=== PATIENT | female | born 1980 | race African-American/Black ===

== ENCOUNTER 2017-10-12 07:20 | Inpatient (IN) | payer BC ==
[2017-10-12] MEDS ORDERED: diphenhydrAMINE 50 MG/ML VIAL ONE (08:11)
[2017-10-12] MEDS ORDERED: Ketorolac Tromethamine 30 MG/ML VIAL ONE (08:11)
[2017-10-12] MEDS ORDERED: Metoclopramide HCl 10 MG/2 ML VIAL ONE (08:11)
[2017-10-12 08:41] LABS: BHCG - Serum Negative (NEGATIVE); Pregs Control Background? CLEAR/WHITE (CLR/WHITE); Pregs Control Bar Appear? YES (CONTROL BAR)
[2017-10-12 08:46] LABS: Reflex for Review?? YES
[2017-10-12 08:47] LABS: Hemoglobin 3.9 g/dL (12.0-16.0); Mean Corpuscular HGB CONC 28.4 g/dL (32.0-36.0); Mean Corpuscular Volume 56.5 fl (81.0-99.0); Platelet Count 219 thou/uL (130-400); Red Blood Cell (RBC) Count 2.46 mill/uL (4.20-5.40); White Blood Cell (WBC) Count 6.3 thou/uL (4.8-10.8)
[2017-10-12 08:53] LABS: ALT (SGPT) 8 U/L (8-55); AST (SGOT) 13 U/L (5-34); Albumin 3.7 g/dL (3.5-5.0); Alkaline Phosphatase 47 U/L (40-150); Anion Gap 11 mmol/L (10-20); BUN (Urea Nitrogen) 5 mg/dL (7.0-18.7); Bilirubin, Total 0.4 mg/dL (0.2-1.2); Calc. Creatinine Clearance 0 mL/min (70-130); Calcium 8.6 mg/dL (7.8-10.44); Carbon Dioxide 23 mmol/L (22-29); Chloride 107 mmol/L (98-107); Estimated GFR-MDRD Greater than 90; Globulin 2.8 g/dL (2.4-3.5); Glucose 106 mg/dL (70-105); Lipase 26 U/L (8-78); Potassium 3.6 mmol/L (3.5-5.1); Protein, Total 6.5 g/dL (6.0-8.3); Sodium 137 mmol/L (136-145)
--- NOTE | 2017-10-12 09:15 | RAD ---
CHEST PA AND LATERAL: History: 36-year-old female with history of cough and headache. Comparison: 12-24-15 FINDINGS: Heart size is upper range of normal limits. No confluent pneumonia, overt edema, or pleural effusion. IMPRESSION: Upper range of normal size heart. Stable from prior study. No evidence for pneumonia, edema, or other acute process. POS: [facility]
[2017-10-12 09:26] LABS: #Eosinphils 0.1 thou/uL (0.0-0.7); #Lymphocytes 1.6 thou/uL (1.20-3.40); #Monocytes 0.4 thou/uL (0.11-0.59); #Neutrophils 3.8 thou/uL (1.40-6.50); %Basophils 0.3 % (0.0-1.0); %Eosinophils 0.8 % (0.0-10.0); %Lymphocytes 30.1 % (21.0-51.0); %Monocytes 5.3 % (0.0-10.0); %Neutrophils 63.6 % (42.0-75.0); Acanthocytes SLIGHT = 1-5 cells (100X) (None Seen); Band 6 % (5-11); Eosinophils 4 % (0-10); Hypochromia MARKED = >30 cells (100X) (0-5/hpf); Lymphocytes 27 % (21-51); MDiff Complete? YES; Microcytosis MARKED = >30 cells (100X) (0-5/hpf); Monocytes 5 % (0-10); Neutrophil 56 % (42-75); Ovalocytes MODERATE= 6-15 cells (100X) (0-1/hpf); PLT Morphology Comment Appears Adequate; Polychromasia SLIGHT = 2-3 cells (100X) (0-2/hpf); Schistocytes SLIGHT = 2-5 cells (100X) (0-1/hpf); Tear Drops SLIGHT = 2-5 cells (100X) (0-1/hpf)
[2017-10-12] MEDS ORDERED: Calcium Carbonate 500 MG ChewTAB PO PRN (10:25)
[2017-10-12] MEDS ORDERED: Senokot 8.6 MG TAB PO PRN (10:25)
[2017-10-12] MEDS ORDERED: Milk Of Magnesia 30 ML UDCUP PO PRN (10:25)
[2017-10-12] MEDS ORDERED: Loperamide HCl 2 MG CAP PO PRN (10:25)
[2017-10-12] MEDS ORDERED: Artificial Tears 18 DROP/0.9 ML EA EYE PRN (10:25)
[2017-10-12] MEDS ORDERED: Eucerin (Mineral Oil/Petrolatum,White) 30 gm Jar TOP PRN (10:25)
[2017-10-12] MEDS ORDERED: Zolpidem Tartrate 5 MG TAB PO PRN (10:25)
[2017-10-12] MEDS ORDERED: Sodium Chloride 0.65% Nasal 44 ML BOT EA NARE PRN (10:25)
[2017-10-12] MEDS ORDERED: diphenhydrAMINE 50 MG/ML VIAL IVP PRN (10:25)
[2017-10-12] MEDS ORDERED: Ondansetron HCl/PF 4 MG/2 ML Vial IVP PRN (10:25)
[2017-10-12] MEDS ORDERED: hydrALAZINE 20 MG/ML VIAL SLOW IVP PRN (10:25)
[2017-10-12] MEDS ORDERED: HYDROcodone/Acetaminophen 5/325 mg Tablet PO PRN (10:25)
[2017-10-12] MEDS ORDERED: Diabetic Tussin 200 MG/10 ML UDCUP PO PRN (10:25)
[2017-10-12] MEDS ORDERED: Mag-Al 1200 mg/1200 mg/30 ML UDCUP PO PRN (10:25)
[2017-10-12] MEDS ORDERED: Ondansetron ODT 4 MG TAB PO PRN (10:25)
[2017-10-12] MEDS ORDERED: Chloraseptic Spray 180 ml Bottle PO PRN (10:25)
[2017-10-12 11:06] LABS: Iron 10 ug/dL (50-170); Iron Binding Capacity, Total 413 mcg/dL (265-497)
[2017-10-12 11:59] LABS: Mean Platelet Volume 7.2 fL (7.4-10.4)
[2017-10-12] MEDS ORDERED: Sodium Chloride 0.9% 10 ML ONE (12:00)
--- NOTE | 2017-10-12 12:21 | HP ---
PRIMARY CARE PHYSICIAN: [facility]. REASON FOR ADMISSION: Severe symptomatic anemia. HISTORY OF PRESENT ILLNESS: A 36-year-old -[place] female who has long history of menorrhagi a and recurrent iron deficiency anemia who came to emergency room with a complaint of dyspnea on exer tion, easy fatigability, tiredness, dizziness, lightheadedness, headache, body ache. She was feeling cold more than usual. She was requiring 2-3 blankets. She was feeling very tired and she was remai mark sleep all the time. She was having dyspnea on exertion. She denies any syncopal episode. She denied any chest pain. Patient reports that she has chronic iron deficiency anemia from menorrhagia, but she was not able to tolerate oral ferrous sulfate pills that was making her nausea, vomiting, an d upset in her stomach along with constipation, so she was not taking regular basis. Patient was try ing to avoid hospitalization, but her condition day by day getting worse and that is why she decided today to come to emergency room. Today, her hemoglobin is 3.9. Patient denies any black tarry stool . She denies any hematochezia or melena. She denies any abdominal pain. She denies any UTI symptom s. She denies any focal motor symptoms. She denies any blood loss from any site. She denies taking NSAIDs. She is not taking any blood thinner medicine. She had exactly similar presentation in 07/2016. At that time, patient required blood transfusion. BELTING AND WEBBING INSPECTOR doctor saw this patient and various treatment options were discussed with her. She reports th at now her menorrhagia is relatively better than whatever it was in the past. PAST MEDICAL HISTORY: Chronic menorrhagia, recurrent iron deficiency anemia requiring blood transfus ion, folic acid deficiency, iron deficiency. PAST SURGICAL HISTORY: Reviewed and negative. x2, cholecystectomy. PAST PSYCHIATRIC HISTORY: Reviewed and negative. ALLERGIES: No known drug allergy. CURRENT HOME MEDICATIONS: The patient is currently not taking any medication. SOCIAL HISTORY: Patient is smoking on and off basis. 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 No hist ory of alcohol or other illicit drug abuse. FAMILY HISTORY: Positive for sickle cell disease. No family history of coronary artery disease, str danielle or cancer. REVIEW OF SYSTEMS: The following complete review of systems was negative, unless otherwise mentioned in the HPI or below: Constitutional: Weight loss or gain, ability to conduct usual activities. Sk in: Rash, itching. Eyes: Double vision, pain. ENT/Mouth: Nose bleeding, neck stiffness, pain, te nderness. Cardiovascular: Palpitations, dyspnea on exertion, orthopnea. Respiratory: Shortness of breath, wheezing, cough, hemoptysis, fever or night sweats. Gastrointestinal: Poor appetite, abdom inal pain, heartburn, nausea, vomiting, constipation, or diarrhea. Genitourinary: Urgency, frequenc y, dysuria, nocturia. Musculoskeletal: Pain, swelling. Neurologic/Psychiatric: Anxiety, depressio n. Allergy/Immunologic: Skin rash, bleeding tendency. Please see my HPI for pertinent positive and negative. All other review of systems reviewed and nega tive except as mentioned in the HPI. EMERGENCY ROOM COURSE: Patient is given Reglan 10 mg, Toradol 30 mg, Benadryl 25 mg, and IV fluid 1 liter. PHYSICAL EXAMINATION: VITAL SIGNS: On arrival, blood pressure 128/53, pulse 67, respiratory rate 18, temperature 98.4, sat uration 100% on room air, weight 77.1 kilograms. GENERAL: Patient is currently alert, awake, weak. No obvious acute distress. HEENT: Normocephalic, atraumatic. Eyes: Pupils round, reactive to light. Conjunctivae pale. No n ystagmus. ENT: Pale mucous membrane, no oral lesion, no pharyngeal erythema, no exudate. Moist muc ous membranes. NECK: Supple, no JVD, no thyromegaly, no carotid bruit, no jugular venous distention. LUNGS: Clear to auscultation without any rhonchi or rales. CARDIAC: S1, S2 regular. Hemic murmur noted, no gallop, no rub. ABDOMEN: Obesity present. Bowel sounds present, nontender, nondistended. No organomegaly, no mass, no suprapubic tenderness. BACK: Unremarkable. No CVA tenderness. EXTREMITIES: Upper extremity passive movement of all joints are normal. Lower extremity: Trace pema ma noted. Good distal pulsation. SKIN: No skin rash, pallor plus. HEMATOLOGICAL: No lymphadenopathy. PSYCHIATRIC: Normal affect. SIGNIFICANT LABORATORY DATA: Chest x-ray based on my review, no acute cardiopulmonary process. CBC: WBC 6.3, hemoglobin 3.9, platelet 219. BMP: Sodium 137, potassium 3.6, chloride 107, carbon dioxi de 23, anion gap 11, BUN 5, creatinine 0.62, glucose 106, calcium 8.6. LFT: AST 13, ALT 8, alkaline phosphatase 47, albumin 3.7, lipase 26. test negative. Iron 10, TIBC 413. ASSESSMENT AND PLAN: 1. Severe symptomatic iron deficiency anemia. The patient will be given 3 units of blood transfusio n today. We will watch for any fluid overload. We will repeat H&H after 3 units of transfusion and we will repeat CBC tomorrow. If hemoglobin is still less than 7, then we will consider transfusion t omorrow morning. We will check ferritin and iron study. We will also consider giving her iron infus ion before discharge because patient is not tolerating any iron supplementation. We will try to give her ferrous sulfate 325 mg p.o. b.i.d., folic acid 1 mg p.o. daily, multivitamin 1 tablet daily, vit awad B12 1000 mg p.o. daily. The patient is advised to avoid NSAIDs. The patient is also advised to follow up with BELTING AND WEBBING INSPECTOR doctor. 2. Menorrhagia, chronic. The patient is fully evaluated during previous admission in our hospital. She had a pelvic ultrasound and she does have uterine fibroid. Patient will need outpatient treatme nt with BELTING AND WEBBING INSPECTOR to prevent recurrent iron deficiency anemia. 3. Tobacco abuse disorder. Smoking cessation counseling given. Healthy lifestyle measures discusse d with the patient. 4. Mild obesity. Dietary education given. Weight loss education advised. 5. Deep venous thrombosis prophylaxis not needed because the patient is low risk and severe anemia. 5. Gastrointestinal prophylaxis, Pepcid 20 mg p.o. b.i.d. We will also check stool for guaiac. Disposition plan based on clinical course. We are expecting patient's stay in hospital more than 2 m idnights. Plan of care discussed with the patient in detail.
[2017-10-12] MEDS: Famotidine 20 MG TAB PO SCH (22:13)
[2017-10-12] MEDS: Ferrous Sulfate 325 MG TAB PO SCH (22:13)
[2017-10-13 05:09] VITALS: BMI 27.5
[2017-10-13 06:23] LABS: ALT (SGPT) 25 U/L (8-55); AST (SGOT) 33 U/L (5-34); Albumin 3.6 g/dL (3.5-5.0); Alkaline Phosphatase 50 U/L (40-150); Anion Gap 8 mmol/L (10-20); BUN (Urea Nitrogen) 4 mg/dL (7.0-18.7); Bilirubin, Total 0.9 mg/dL (0.2-1.2); Calc. Creatinine Clearance 143 mL/min (70-130); Calcium 8.4 mg/dL (7.8-10.44); Carbon Dioxide 24 mmol/L (22-29); Chloride 109 mmol/L (98-107); Estimated GFR-MDRD Greater than 90; Globulin 2.6 g/dL (2.4-3.5); Glucose 90 mg/dL (70-105); Potassium 3.8 mmol/L (3.5-5.1); Protein, Total 6.2 g/dL (6.0-8.3); Sodium 137 mmol/L (136-145)
[2017-10-13 06:51] LABS: #Eosinphils 0.1 thou/uL (0.0-0.7); #Lymphocytes 1.8 thou/uL (1.20-3.40); #Monocytes 0.6 thou/uL (0.11-0.59); #Neutrophils 5.7 thou/uL (1.40-6.50); %Basophils 0.3 % (0.0-1.0); %Eosinophils 0.7 % (0.0-10.0); %Lymphocytes 21.8 % (21.0-51.0); %Monocytes 6.8 % (0.0-10.0); %Neutrophils 70.3 % (42.0-75.0); Anisocytosis MARKED = >30 cells (100X) (0-5/hpf); Hypochromia MODERATE=16-30 cells (100X) (0-5/hpf); MDiff Complete? YES; Mean Corpuscular Hemoglobin 21.6 pg (27.0-31.0); Mean Corpuscular Volume 67.6 fl (81.0-99.0); Mean Platelet Volume 6.4 fL (7.4-10.4); Microcytosis MODERATE=15-30 cells (100X) (0-5/hpf); PLT Morphology Comment Appears Adequate; Platelet Count 258 thou/uL (130-400); RBC Distribution Width 37.9 % (11.5-14.5); Red Blood Cell (RBC) Count 3.22 mill/uL (4.20-5.40); Tear Drops SLIGHT = 2-5 cells (100X) (0-1/hpf); White Blood Cell (WBC) Count 8.1 thou/uL (4.8-10.8)
[2017-10-13] MEDS: Sodium Ferric Gluconate 250 MG in Sodium Chloride 0.9% 100 ML IVPB SCH ×2 (07:57→21:51)
[2017-10-13] MEDS: Cyanocobalamin (Vitamin B-12) 1,000 MCG TAB PO SCH (07:57)
[2017-10-13] MEDS: Multivitamin W/ Minerals 1 TAB PO SCH (07:58)
[2017-10-13] MEDS: Famotidine 20 MG TAB PO SCH ×2 (07:58→21:52)
[2017-10-13] MEDS: Folic Acid 1 MG TAB PO SCH (07:58)
[2017-10-13] MEDS: Ferrous Sulfate 325 MG TAB PO SCH ×2 (07:58→17:42)
--- NOTE | 2017-10-13 09:44 | PDOC.PN ---
- Subjective Encounter Start Date: 10/13/17 Encounter Start Time: 07:00 -: old records requested/rev Patient seen and examined for iron defi anemia. No new complaints. No overnight events - Objective Resuscitation Status: Resuscitation Status FULL:Full Resuscitation MAR Reviewed: Yes Vital Signs & Weight: Vital Signs (12 hours) Temp Pulse Pulse Resp BP BP Pulse Ox 10/13/17 08:00 98.2 F 56 L 16 122/61 100 10/13/17 03:34 98.5 F 60 16 113/90 95 10/13/17 00:30 98.8 F 68 20 100 10/12/17 23:51 98.8 F 68 18 145/65 H Weight Weight 165 lb 6 oz I&O: 10/12/17 10/13/17 10/14/17 06:59 06:59 06:59 Intake Total 887 Balance 887 Result Diagrams: 10/13/17 05:24 10/13/17 05:24 Phys Exam - Physical Examination Constitutional: NAD HEENT: PERRLA, moist MMs, sclera anicteric pallor+ Neck: no nodes, no JVD, supple, full ROM Respiratory: no wheezing, no rales, no rhonchi Cardiovascular: RRR, no significant murmur, no rub Hemic murmur+ Gastrointestinal: soft, non-tender, no distention, positive bowel sounds Musculoskeletal: no edema, pulses present Neurological: non-focal, normal sensation, moves all 4 limbs Lymphatic: no nodes Psychiatric: normal affect, A&O x 3 Skin: no rash, normal turgor, cap refill <2 seconds Dx/Plan (1) Symptomatic anemia Code(s): D64.9 - ANEMIA, UNSPECIFIED Status: Acute Comment: so far 3 unit prbc given, today will give one more prbc (2) Anxiety and depression Code(s): F41.9 - ANXIETY DISORDER, UNSPECIFIED; F32.9 - MAJOR DEPRESSIVE DISORDER, SINGLE EPISODE, UNSPECIFIED Status: Chronic Comment: not on treatment, controlled (3) Iron deficiency anemia due to chronic blood loss Code(s): D50.0 - IRON DEFICIENCY ANEMIA SECONDARY TO BLOOD LOSS (CHRONIC) Status: Chronic Comment: today will give 2 dose of IV iron as she is not tolerating oral iron (4) Menorrhagia Code(s): N92.0 - EXCESSIVE AND FREQUENT MENSTRUATION WITH REGULAR CYCLE Status : Chronic Comment: now controlled, advised oupt ob-double cut off saw operator follow up (5) Obesity Code(s): E66.9 - OBESITY, UNSPECIFIED Status: Chronic (6) Uterine adenomyoma Code(s): D26.9 - OTHER BENIGN NEOPLASM OF UTERUS, UNSPECIFIED Status: Chronic Comment: advised outpt ob-double cut off saw operator follow up - Plan cont current plan of care, DVT proph w/SCDs * tomorrow will repeat cbc * expecting discharge tomorrow * medication reviewed as below * symptomatic treatment. Review of Systems - Review of Systems Constitutional: negative: fever, chills, sweats, weakness, malaise, other ENT: negative: Ear Pain, Ear Discharge, Nose Pain, Nose Discharge, Nose Congestion, Mouth Pain, Mouth Swelling, Throat Pain, Throat Swelling, Other Respiratory: negative: Cough, Dry, Shortness of Breath, Hemoptysis, SOB with Excertion, Pleuritic Pain, Sputum, Wheezing Cardiovascular: negative: chest pain, palpitations, orthopnea, paroxysmal nocturnal dyspnea, edema, light headedness, other Gastrointestinal: negative: Nausea, Vomiting, Abdominal Pain, Diarrhea, Constipation, Melena, Hematochezia, Other Genitourinary: negative: Dysuria, Frequency, Incontinence, Hematuria, Retention , Other Musculoskeletal: negative: Neck Pain, Shoulder Pain, Arm Pain, Back Pain, Hand Pain, Leg Pain, Foot Pain, Other Skin: negative: Rash, Lesions, Cash, Bruising, Other - Medications/Allergies Allergies/Adverse Reactions: Allergies Allergy/AdvReac Type Severity Reaction Status Date / Time No Known Allergies Allergy Verified 12/24/15 15:48 Medications: Current Medications Acetaminophen (Tylenol) 650 mg PO Q4H PRN PRN Reason: Headache/Fever or Pain Hydrocodone Bitart/Acetaminophen ([place] 5/325) 1 tab PO Q4H PRN PRN Reason: Moderate Pain (4-6) Al Hydroxide/Mg Hydroxide (Maalox) 30 ml PO Q6H PRN PRN Reason: Heartburn or Indigestion Artificial Tears (Tears Naturale) 0 drop EA EYE PRN PRN PRN Reason: Dry Eyes Calcium Carbonate (Tums) 1,000 mg PO Q4H PRN PRN Reason: Heartburn or Indigestion Cyanocobalamin (Vitamin B-12) 1,000 mcg PO DAILY [facility] Last Admin: 10/13/17 07:57 Dose: 1,000 mcg Diphenhydramine HCl (Benadryl) 25 mg IVP Q4H PRN PRN Reason: Itching Famotidine (Pepcid) 20 mg PO BID [facility] Last Admin: 10/13/17 07:58 Dose: 20 mg Ferrous Sulfate (Feosol) 325 mg PO BID[facility] Last Admin: 10/13/17 07:58 Dose: 325 mg Folic Acid (Folvite) 1 mg PO DAILY [facility] Last Admin: 10/13/17 07:58 Dose: 1 mg Guaifenesin (Robitussin Sf) 200 mg PO Q4H PRN PRN Reason: Cough Hydralazine HCl (Apresoline) 10 mg SLOW IVP Q4H PRN PRN Reason: Systolic BP > 180 Ferric Sodium Gluconate Complex 250 mg/ Sodium Chloride 120 mls @ 60 mls/hr IVPB Q12HR [facility] Stop: 10/13/17 21:01 Last Admin: 10/13/17 07:57 Dose: 120 mls Iron/Minerals/Multivitamins (Theragran M) 1 tab PO DAILY [facility] Last Admin: 10/13/17 07:58 Dose: 1 tab Loperamide HCl (Imodium) 2 mg PO PRN PRN PRN Reason: Diarrhea/Loose Stools Magnesium Hydroxide (Milk Of Magnesium) 30 ml PO DAILYPRN PRN PRN Reason: Constipation Mineral Oil/White Petrolatum (Eucerin Cream) 0 gm TOP BIDPRN PRN PRN Reason: Dry Skin Ondansetron HCl (Zofran Odt) 4 mg PO Q6H PRN PRN Reason: Nausea/Vomiting Ondansetron HCl (Zofran) 4 mg IVP Q6H PRN PRN Reason: Nausea/Vomiting Phenol (Chloraseptic [place] 180 Ml Bot) 0 ml PO PRN PRN PRN Reason: Sore Throat Senna (Senokot) 2 tab PO HSPRN PRN PRN Reason: Constipation Sodium Chloride ([place] Nasal [place] 0.65%) 0 ml EA NARE QIDPRN PRN PRN Reason: Nasal Congestion Sodium Chloride (Flush - Normal Saline) 10 ml IVF Q12HR [facility] Last Admin: 10/13/17 07:58 Dose: 10 ml Sodium Chloride (Flush - Normal Saline) 10 ml IVF PRN PRN PRN Reason: Saline Flush Zolpidem Tartrate (Ambien) 5 mg PO HSPRN PRN PRN Reason: Insomnia
[2017-10-13 14:10] LABS: Bilirubin Negative (Negative); Blood, Urine Negative (Negative); Clarity CLEAR (Clear); Glucose, Urine (Dipstick) Negative (Negative); Leukocyte Trace (Negative); Nitrite Negative (Negative); Protein, Urine (Dipstick) Negative (Neg-Trace); Specific Gravity, Urine 1.016 (1.002-1.036)
[2017-10-13 14:14] LABS: Bacteria/HPF None Seen HPF (None Seen); Hyaline Casts/LPF 0-3 HYALINE CAST LPF (0-3 Hyaline); RBC/HPF 0-3 HPF (0-3); Squamous Epithelial 0-3 HPF (0-3); WBC/HPF 0-3 HPF (0-3)
[2017-10-13] MEDS: Acetaminophen 325 MG TAB PO PRN (17:42)
[2017-10-14] MEDS: Acetaminophen 325 MG TAB PO PRN (06:22)
--- NOTE | 2017-10-14 07:38 | PDOC.PN ---
- Subjective Encounter Start Date: 10/14/17 Encounter Start Time: 07:37 Ms. Valles was seen today in follow-up of severe anemia. She is feeling much better after the transfusion. - Objective Resuscitation Status: Resuscitation Status FULL:Full Resuscitation MAR Reviewed: Yes Vital Signs & Weight: Vital Signs (12 hours) Temp Pulse Resp BP Pulse Ox 10/14/17 00:00 98.4 F 52 L 18 138/68 100 10/13/17 20:00 98.4 F 52 L 18 100 10/13/17 19:56 98.3 F 50 L 16 163/85 H 99 Weight Weight 165 lb 6 oz I&O: 10/13/17 10/14/17 10/15/17 06:59 06:59 06:59 Intake Total 887 1790 Balance 887 1790 Result Diagrams: 10/13/17 05:24 10/13/17 05:24 Phys Exam - Physical Examination HEENT: PERRLA Respiratory: no wheezing, no rales, no rhonchi, clear to auscultation bilateral Cardiovascular: RRR, no significant murmur, no rub Gastrointestinal: soft, non-tender, positive bowel sounds Musculoskeletal: no edema Dx/Plan (1) Symptomatic anemia Code(s): D64.9 - ANEMIA, UNSPECIFIED Status: Acute Comment: so far 3 unit prbc given, today will give one more prbc (2) Iron deficiency anemia due to chronic blood loss Code(s): D50.0 - IRON DEFICIENCY ANEMIA SECONDARY TO BLOOD LOSS (CHRONIC) Status: Chronic Comment: today will give 2 dose of IV iron as she is not tolerating oral iron (3) Menorrhagia Code(s): N92.0 - EXCESSIVE AND FREQUENT MENSTRUATION WITH REGULAR CYCLE Status : Chronic Comment: now controlled, advised oupt ob-computer publisher follow up - Plan * Severe anemia- much imroved after transfusion, and she had received IV iron as well * We discussed some options Ie Hysterectomy vs. Uterine ablation * She will be discharged home with close OB-PRACTICE OFFICE ASSOCIATE follow-up..
--- NOTE | 2017-10-14 08:00 | DIS ---
DATE OF ADMISSION: 10/12/2017 DATE OF DISCHARGE: 10/14/2017 DISCHARGE DISPOSITION: Home. PRIMARY DISCHARGE DIAGNOSES: 1. Severe symptomatic anemia secondary to chronic blood loss. 2. Iron deficiency anemia. 3. Severe menorrhagia. DISCHARGE MEDICATIONS: Include, Iron Sulfate 325 mg twice a day. CODE STATUS: FULL CODE. ALLERGIES: No known drug allergies. HOSPITAL COURSE: Ms. Valles is a very pleasant 36-year-old female, who presented to the emergency aga m with severe shortness of breath and some chest discomfort as well. She was evaluated in the ER and found to have a dangerously low hemoglobin of 3.9. She was admitted and received 4 units of packed blood cells were transfused to bring her hemoglobin up to 7. She was also given IV iron as well. He r iron level was 10 and ferritin was less than 2. Serum test was negative. In review of h er record, she had been seen by the [facility] last admission and therefore they were n ot consulted again this time. She has the number to the [facility] [place]. She had a cou ple of other questions that were answered with regards to uterine ablation versus hysterectomy and ho w to take the iron without severe side effects, etc. These questions were all answered and she was to ld the dangers of repetitive severe low hemoglobins including heart failure and and she will th erefore be discharged home and will have close outpatient followup.
[2017-10-14 08:08] LABS: Acanthocytes SLIGHT = 1-5 cells (100X) (None Seen); Anisocytosis MARKED = >30 cells (100X) (0-5/hpf); Band 6 % (5-11); Bite Cells SLIGHT = 2-5 cells (100X) (0-1/hpf); Hemoglobin 8.5 g/dL (12.0-16.0); Hypochromia MODERATE=16-30 cells (100X) (0-5/hpf); Lymphocytes 19 % (21-51); MDiff Complete? YES; Mean Corpuscular HGB CONC 30.6 g/dL (32.0-36.0); Mean Corpuscular Hemoglobin 21.9 pg (27.0-31.0); Mean Corpuscular Volume 71.7 fl (81.0-99.0); Mean Platelet Volume 6.5 fL (7.4-10.4); Monocytes 8 % (0-10); Neutrophil 67 % (42-75); PLT Morphology Comment Appears Adequate; Platelet Count 381 thou/uL (130-400); Polychromasia MODERATE = 3-4 cells (100X) (0-2/hpf); RBC Distribution Width 36.8 % (11.5-14.5); Red Blood Cell (RBC) Count 3.87 mill/uL (4.20-5.40); Schistocytes MODERATE= 6-15 cells (100X) (0-1/hpf); White Blood Cell (WBC) Count 10.9 thou/uL (4.8-10.8)
[2017-10-14 08:20] VITALS: BP 141/61; TEMP 97.6
[2017-10-14] MEDS: Folic Acid 1 MG TAB PO SCH (09:04)
[2017-10-14] MEDS: Ferrous Sulfate 325 MG TAB PO SCH (09:04)
[2017-10-14] MEDS: Cyanocobalamin (Vitamin B-12) 1,000 MCG TAB PO SCH (09:04)
[2017-10-14] MEDS: Multivitamin W/ Minerals 1 TAB PO SCH (09:04)
[2017-10-14] MEDS: Famotidine 20 MG TAB PO SCH (09:04)
== END 2017-10-14 10:58 | disposition home or self-care (01) | DRG 812 ==
LOC: ERS 07:20 → 3SE 09:33 → ONC 10-13 00:23
PROVIDERS: ADMIT Internal Medicine; ATTEND Internal Medicine
DX: D50.0 Iron deficiency anemia secondary to blood loss (chronic) (principal); N92.0 Excessive and frequent menstruation with regular cycle; F32.9 Major depressive disorder, single episode, unspecified; F41.9 Anxiety disorder, unspecified; E66.9 Obesity, unspecified; Z68.27 Body mass index [BMI] 27.0-27.9, adult; Z71.6 Tobacco abuse counseling; F17.200 Nicotine dependence, unspecified, uncomplicated
CPT/HCPCS: 36415; 36430; 71046; 80053; 81001; 82274; 82728; 83540; 83550; 83690; 84703; 85025; 85060; 86850; 86900; 86901; 96365; 96366; 96375; A4216; J1200; J1885; J2765; J2916; J7050; P9016; Q0162

== ENCOUNTER 2018-07-25 19:44 | Observation (INO) | payer BC ==
[2018-07-25 20:28] LABS: Mean Corpuscular Hemoglobin 15.6 pg (27.0-31.0); Mean Corpuscular Volume 53.8 fL (78.0-98.0); RBC Distribution Width 38.6 % (11.5-14.5); Red Blood Cell (RBC) Count 2.55 mill/uL (4.20-5.40); White Blood Cell (WBC) Count 5.3 thou/uL (4.8-10.8)
[2018-07-25 20:40] LABS: ALT (SGPT) 7 U/L (8-55); AST (SGOT) 12 U/L (5-34); Albumin 4.3 g/dL (3.5-5.0); Alkaline Phosphatase 63 U/L (40-150); Anion Gap 12 mmol/L (10-20); BUN (Urea Nitrogen) 7 mg/dL (7.0-18.7); Bilirubin, Total 0.2 mg/dL (0.2-1.2); Calc. Creatinine Clearance 0 mL/min (70-130); Calcium 9.4 mg/dL (7.8-10.44); Carbon Dioxide 23 mmol/L (22-29); Chloride 107 mmol/L (98-107); Estimated GFR-MDRD Greater than 90; Globulin 3.3 g/dL (2.4-3.5); Glucose 78 mg/dL (70-105); Iron 173 ug/dL (50-170); Iron Binding Capacity, Total 496 mcg/dL (265-497); Potassium 3.4 mmol/L (3.5-5.1); Protein, Total 7.6 g/dL (6.0-8.3); Sodium 139 mmol/L (136-145)
[2018-07-25 20:45] LABS: #Eosinphils 0.1 thou/uL (0.0-0.7); #Lymphocytes 2.5 thou/uL (1.20-3.40); #Monocytes 0.3 thou/uL (0.11-0.59); #Neutrophils 2.5 thou/uL (1.40-6.50); %Basophils 0.9 % (0.0-1.0); %Eosinophils 1.1 % (0.0-10.0); %Lymphocytes 46.3 % (21.0-51.0); %Monocytes 5.4 % (0.0-10.0); %Neutrophils 46.3 % (42.0-75.0); Anisocytosis MODERATE=16-30 cells (100X) (0-5/hpf); Elliptocytes SLIGHT = 2-5 cells (100X) (0-1/hpf); Hypochromia MARKED = >30 cells (100X) (0-5/hpf); MDiff Complete? YES; Platelet Count 35 thou/uL (130-400); Platelet Morphology Comment Appears Decreased
[2018-07-25] MEDS ORDERED: Acetaminophen 500 MG TAB ONE (21:49)
[2018-07-25] MEDS ORDERED: Ondansetron PF 4 MG/2 ML Vial IVP PRN (23:09)
[2018-07-25] MEDS ORDERED: Acetaminophen 325 MG TAB PO PRN (23:09)
[2018-07-25] MEDS ORDERED: Ondansetron ODT 4 MG TAB PO PRN (23:09)
[2018-07-26 00:03] VITALS: BMI 33.1
--- NOTE | 2018-07-26 04:16 | HP ---
PRIMARY CARE PHYSICIAN: There is no PCP reported. She goes to [facility]. CODE STATUS: Full code. TIME OF EVALUATION: 2224. CHIEF COMPLAINT: Headache and generalized weakness. HISTORY OF PRESENT ILLNESS: This is a 37-year-old female patient with past medical history of chronic anemia and many times been severe needing blood transfusion. The patient has a long history of having heavy periods, has been on iron pills for long time. She presented having headaches and severe generalized weakness that has been gradually getting worse, especially for the past few days. The patient was seen in the clinic and she had some blood work done and she was asked to come to the hospital due to low hemoglobin. REVIEW OF SYSTEMS: CONSTITUTIONAL: No fever, chills. The patient reported some generalized weakness. RESPIRATORY: No cough, sputum production, shortness of breath. CARDIOVASCULAR: No chest pain, palpitations. GASTROINTESTINAL: No nausea, no vomiting. No diarrhea or abdominal pain. CENTRAL NERVOUS SYSTEM: No dizziness. The patient did report headache, feeling lightheaded. GENITOURINARY : No burning on urination. EXTREMITIES: No leg swelling. All other systems were reviewed and negative except for the findings mentioned above. PAST MEDICAL HISTORY: Positive for chronic anemia, iron-deficiency anemia. PAST SURGICAL HISTORY: x2, cholecystectomy. PSYCHIATRIC HISTORY: Anxiety. FAMILY HISTORY : Reviewed and non contributory for current presentation. SOCIAL HISTORY: No alcohol. No drugs. Former tobacco user. ALLERGIES: NO KNOWN DRUG ALLERGIES. REPORTED MEDICATIONS: Iron pills sometimes. PHYSICAL EXAMINATION: VITAL SIGNS: On presentation, blood pressure 134/62 with heart rate 85, respiratory rate was 16, temperature 98.5. Pain was 0/10. Oxygen saturation was 100% on room air. GENERAL APPEARANCE: The patient is alert, oriented, not in acute distress. HEENT: Eyes, normal conjunctiva. Moist oral mucosa. Anicteric. No JVD. RESPIRATORY: Bilateral air entry. No rales. No wheezing. Symmetric expansion. CARDIOVASCULAR: Normal rate. Regular rhythm. No murmurs. No gallop. No edema. ABDOMEN: Soft. Normal bowel sounds. MUSCULOSKELETAL: Baseline range of motion and strength. No tenderness. SKIN: Warm, intact. The patient is pale. No rash. No redness. VASCULAR: Peripheral pulses are present. Capillary refill seems to be intact. NEUROLOGIC: No evidence of any new focal weakness. Baseline speech. Cranial nerves seem to be intact. PSYCHIATRIC: The patient has good mood. No anxiety. Optimal judgment. DIAGNOSTIC DATA: EKG was reviewed. The patient has normal sinus rhythm with a rate of 79, MD 186, QRS 102, QT corrected 454. LABORATORY DATA: Labs were reviewed. The patient has white count 5.3, hemoglobin 4.0, hematocrit 13.7, MCV 53.8. The patient has a platelet count of 35. Chemistry; sodium 139, potassium 3.4, chloride 107, carbon dioxide 23, anion gap 12. BUN 7 , creatinine 0.7. GFR greater than 90, glucose 78, calcium 9.4, iron 173, TIBC 496, ferritin 4.46, total bilirubin 0.2, AST 12, ALT 7. Troponin was negative. Albumin was negative. ASSESSMENT AND PLAN: 1. The patient has severe anemia with hemoglobin of 4. She has had history of hemoglobin since 2016 in our records of about 5.4, 4.7, 3.9, so this range is expected for her in some way. We will transfuse. We will monitor hemoglobin. Might benefit from Hematology consultation prior to discharge or as outpatient. 2. Severe thrombocytopenia of 35, this is new for her. This will be discussed with Hematology. The patient has no bleeding right now. We will monitor. 3. Hypokalemia, potassium 3.4, we will replace electrolytes as needed. 4. Possible thalassemia. The patient has MCV very low that could be related to underlying known diagnosis of thalassemia and certainly given the fact that iron was high. Again, this could be followed as outpatient with bore mill operator for plastic. 5. DVT prophylaxis. Job ID: [id number] [facility] DIVISIONOphelia
[2018-07-26 07:07] LABS: Hemoglobin 5.8 g/dL (12.0-16.0); Mean Corpuscular HGB CONC 30.5 g/dL (32.0-36.0); Mean Corpuscular Hemoglobin 18.9 pg (27.0-31.0); Mean Platelet Volume 8.3 fL (7.4-10.4); Platelet Count 31 thou/uL (130-400); RBC Distribution Width 37.6 % (11.5-14.5); Red Blood Cell (RBC) Count 3.08 mill/uL (4.20-5.40); White Blood Cell (WBC) Count 4.1 thou/uL (4.8-10.8)
[2018-07-26 07:14] LABS: Anion Gap 11 mmol/L (10-20); BUN (Urea Nitrogen) 7 mg/dL (7.0-18.7); Calc. Creatinine Clearance 192 mL/min (70-130); Calcium 8.9 mg/dL (7.8-10.44); Carbon Dioxide 21 mmol/L (22-29); Chloride 111 mmol/L (98-107); Estimated GFR-MDRD Greater than 90; Glucose 93 mg/dL (70-105); Potassium 3.8 mmol/L (3.5-5.1); Sodium 139 mmol/L (136-145)
[2018-07-26 09:11] LABS: Band 1 % (5-11); Bite Cells SLIGHT = 2-5 cells (100X) (0-1/hpf); Eosinophils 4 % (0-10); Hypochromia MARKED = >30 cells (100X) (0-5/hpf); Lymphocytes 45 % (21-51); MDiff Complete? YES; Microcytosis MARKED = >30 cells (100X) (0-5/hpf); Monocytes 2 % (0-10); Neutrophil 47 % (42-75); Ovalocytes MODERATE= 6-15 cells (100X) (0-1/hpf); Platelet Morphology Comment Appears Decreased; Polychromasia SLIGHT = 2-3 cells (100X) (0-2/hpf); Reactive Lymphocytes 1 % (0-10); Reflex for Review?? YES; Schistocytes SLIGHT = 2-5 cells (100X) (0-1/hpf); Spherocytes SLIGHT = 1-5 cells (100X) (None Seen); Tear Drops SLIGHT = 2-5 cells (100X) (0-1/hpf)
[2018-07-26] MEDS: Ferrous Sulfate 325 MG TAB PO SCH ×2 (11:01→17:42)
--- NOTE | 2018-07-26 12:55 | PDOC.PN ---
- Subjective Encounter Start Date: 07/26/18 Encounter Start Time: 12:53 Patient lying in bed, no complaints. She denies chest pain, shortness of breath or abdominal pain. She has received 2 units PRBCs and Hgb currently 5.8. - Objective Resuscitation Status - Order Detail: 07/25/18 23:09 Resuscitation Status Routine Resuscitation Status: FULL: Full Resuscitation MAR Reviewed: Yes Vital Signs & Weight: Vital Signs (12 hours) Temp Pulse Pulse Resp BP BP Pulse Ox 07/26/18 12:00 97.6 F 67 16 140/65 100 07/26/18 08:00 98.6 F 69 18 128/60 100 07/26/18 03:35 98.3 F 72 16 132/60 100 07/26/18 01:22 98 F 77 18 123/58 L 100 Weight Weight 205 lb 9.6 oz I&O: 07/25/18 07/26/18 07/27/18 06:59 06:59 06:59 Intake Total 2032 Balance 2032 Result Diagrams: 07/26/18 06:13 07/26/18 06:13 Radiology Reviewed by me: Yes Phys Exam - Physical Examination Constitutional: NAD HEENT: PERRLA, moist MMs, oral pharynx no lesions Neck: no nodes, no JVD Respiratory: no wheezing, clear to auscultation bilateral Cardiovascular: RRR, no significant murmur Gastrointestinal: soft, non-tender, positive bowel sounds Musculoskeletal: no edema, pulses present Neurological: non-focal, normal sensation Lymphatic: no nodes Psychiatric: normal affect, A&O x 3 Skin: no rash, cap refill <2 seconds Dx/Plan (1) Symptomatic anemia Code(s): D64.9 - ANEMIA, UNSPECIFIED Status: Acute Comment: so far 3 unit prbc given, today will give one more prbc (2) Iron deficiency anemia due to chronic blood loss Code(s): D50.0 - IRON DEFICIENCY ANEMIA SECONDARY TO BLOOD LOSS (CHRONIC) Status: Chronic (3) Menorrhagia Code(s): N92.0 - EXCESSIVE AND FREQUENT MENSTRUATION WITH REGULAR CYCLE Status : Chronic Comment: now controlled, advised oupt ob-butt presser follow up (4) Obesity Code(s): E66.9 - OBESITY, UNSPECIFIED Status: Chronic (5) Uterine adenomyoma Code(s): D26.9 - OTHER BENIGN NEOPLASM OF UTERUS, UNSPECIFIED Status: Chronic Comment: advised outpt ob-butt presser follow up - Plan cont current plan of care * Continue transfusions, will order 2 more units so she can improve to Hgb >7.0 * Monitor H&H * Continue home medications including oral iron * Patient recommended to have hysterectomy [address] Yanes, but she refused * Likely discharge once Hgb >7.0
[2018-07-26 23:44] LABS: Hemoglobin 7.9 g/dL (12.0-16.0)
[2018-07-27] MEDS: Ferrous Sulfate 325 MG TAB PO SCH (08:03)
[2018-07-27 08:06] VITALS: BP 123/60; TEMP 97.8
== END 2018-07-27 09:47 | disposition home or self-care (01) ==
LOC: ERS 19:44 → 2SW 21:31
PROVIDERS: ADMIT Hospitalist; ATTEND Hospitalist
DX: D50.0 Iron deficiency anemia secondary to blood loss (chronic) (principal); N92.0 Excessive and frequent menstruation with regular cycle; D69.6 Thrombocytopenia, unspecified; E87.6 Hypokalemia; F41.9 Anxiety disorder, unspecified; D26.9 Other benign neoplasm of uterus, unspecified; E66.9 Obesity, unspecified; Z68.33 Body mass index [BMI] 33.0-33.9, adult; Z90.49 Acquired absence of other specified parts of digestive tract; Z87.891 Personal history of nicotine dependence
CPT/HCPCS: 36415; 36430; 80048; 80053; 82728; 83540; 83550; 84484; 85025; 85060; 86850; 86900; 86901; 90471; 90686; 93005; G0008; G0378; P9016; Q0162

== ENCOUNTER 2020-09-16 23:38 | Observation (INO) | payer BC, SELFPAY ==
[2020-09-17 00:43] LABS: ALT (SGPT) 9 U/L (8-55); AST (SGOT) 19 U/L (5-34); Albumin 3.8 g/dL (3.5-5.0); Alkaline Phosphatase 53 U/L (40-110); Anion Gap 14 mmol/L (10-20); BUN (Urea Nitrogen) 8 mg/dL (7.0-18.7); Bilirubin, Total 0.2 mg/dL (0.2-1.2); Calc. Creatinine Clearance 0 mL/min (70-130); Calcium 8.5 mg/dL (7.8-10.44); Carbon Dioxide 23 mmol/L (22-29); Chloride 103 mmol/L (98-107); Globulin 3.4 g/dL (2.4-3.5); Glucose 105 mg/dL (70-105); Potassium 3.2 mmol/L (3.5-5.1); Protein, Total 7.2 g/dL (6.0-8.3); Sodium 137 mmol/L (136-145)
[2020-09-17 00:49] LABS: BHCG - Serum Negative (NEGATIVE); Pregs Control Background? CLEAR/WHITE (CLR/WHITE); Pregs Control Bar Appear? YES (CONTROL BAR)
[2020-09-17 00:50] LABS: Hemoglobin 5.2 g/dL (12.0-16.0)
[2020-09-17 01:05] LABS: Anisocytosis MARKED = >30 cells (100X) (0-5/hpf); Band 12 % (5-11); Elliptocytes SLIGHT = 2-5 cells (100X) (0-1/hpf); Hypochromia MODERATE=16-30 cells (100X) (0-5/hpf); Lymphocytes 48 % (21-51); MDiff Complete? YES; Mean Corpuscular HGB CONC 29.8 g/dL (32.0-36.0); Mean Corpuscular Hemoglobin 16.3 pg (27.0-31.0); Mean Corpuscular Volume 54.6 fL (78.0-98.0); Mean Platelet Volume 7.2 fL (7.4-10.4); Microcytosis MODERATE=15-30 cells (100X) (0-5/hpf); Monocytes 7 % (0-10); Neutrophil 32 % (42-75); Platelet Count 61 thou/uL (130-400); Platelet Morphology Comment Appears Decreased; RBC Distribution Width 38.5 % (11.5-14.5); Red Blood Cell (RBC) Count 3.22 mill/uL (4.20-5.40); Reflex for Review?? YES; White Blood Cell (WBC) Count 6.7 thou/uL (4.8-10.8)
[2020-09-17 03:16] VITALS: BMI 30.2
[2020-09-17 07:38] LABS: SARS-CoV-2 PCR by NAA Not Detected (NotDetected)
[2020-09-17] MEDS ORDERED: Acetaminophen 650 MG Suppository PR PRN (09:18)
[2020-09-17] MEDS ORDERED: Acetaminophen 325 MG TAB PO PRN (09:18)
[2020-09-17] MEDS ORDERED: Potassium Chloride 20 MEQ TAB PO SCH ×2 (10:15→23:30)
[2020-09-17] MEDS ORDERED: Potassium Chloride 20 MEQ TAB ONE (12:17)
[2020-09-17 20:22] LABS: Anion Gap 12 mmol/L (10-20); BUN (Urea Nitrogen) 7 mg/dL (7.0-18.7); Calc. Creatinine Clearance 138 mL/min (70-130); Calcium 8.7 mg/dL (7.8-10.44); Carbon Dioxide 22 mmol/L (22-29); Chloride 107 mmol/L (98-107); Glucose 111 mg/dL (70-105); Potassium 3.4 mmol/L (3.5-5.1); Sodium 138 mmol/L (136-145)
[2020-09-17 20:29] LABS: Anisocytosis MODERATE=16-30 cells (100X) (0-5/hpf); Band 20 % (5-11); Elliptocytes SLIGHT = 2-5 cells (100X) (0-1/hpf); Eosinophils 3 % (0-10); Hemoglobin 8.6 g/dL (12.0-16.0); Hypochromia MODERATE=16-30 cells (100X) (0-5/hpf); Lymphocytes 33 % (21-51); MDiff Complete? YES; Mean Corpuscular HGB CONC 31.3 g/dL (32.0-36.0); Mean Corpuscular Hemoglobin 20.2 pg (27.0-31.0); Mean Corpuscular Volume 64.7 fL (78.0-98.0); Mean Platelet Volume 7.5 fL (7.4-10.4); Microcytosis MODERATE=15-30 cells (100X) (0-5/hpf); Monocytes 8 % (0-10); Neutrophil 36 % (42-75); Ovalocytes SLIGHT = 2-5 cells (100X) (0-1/hpf); Platelet Count 38 thou/uL (130-400); Platelet Morphology Comment Appears Decreased; Polychromasia SLIGHT = 2-3 cells (100X) (0-2/hpf); RBC Distribution Width 37.3 % (11.5-14.5); Red Blood Cell (RBC) Count 4.25 mill/uL (4.20-5.40); Schistocytes SLIGHT = 2-5 cells (100X) (0-1/hpf); Target Cells SLIGHT = 2-5 cells (100X) (0-1/hpf); Tear Drops SLIGHT = 2-5 cells (100X) (0-1/hpf); White Blood Cell (WBC) Count 6.9 thou/uL (4.8-10.8)
[2020-09-18 07:18] LABS: Anion Gap 12 mmol/L (10-20); BUN (Urea Nitrogen) 5 mg/dL (7.0-18.7); Calc. Creatinine Clearance 164 mL/min (70-130); Calcium 8.2 mg/dL (7.8-10.44); Carbon Dioxide 20 mmol/L (22-29); Chloride 109 mmol/L (98-107); Glucose 86 mg/dL (70-105); Iron 174 ug/dL (50-170); Iron 180 ug/dL (50-170); Iron Binding Capacity, Total 379 mcg/dL (265-497); Iron Binding Capacity, Total 384 mcg/dL (265-497); Potassium 4.2 mmol/L (3.5-5.1); Sodium 137 mmol/L (136-145)
[2020-09-18 07:57] LABS: Anisocytosis MARKED = >30 cells (100X) (0-5/hpf); Band 5 % (5-11); Hemoglobin 7.6 g/dL (12.0-16.0); Hypochromia MODERATE=16-30 cells (100X) (0-5/hpf); Lymphocytes 46 % (21-51); MDiff Complete? YES; Mean Corpuscular HGB CONC 31.3 g/dL (32.0-36.0); Mean Corpuscular Hemoglobin 20.3 pg (27.0-31.0); Mean Platelet Volume 16.5 fL (7.4-10.4); Microcytosis MODERATE=15-30 cells (100X) (0-5/hpf); Monocytes 6 % (0-10); Neutrophil 43 % (42-75); Ovalocytes MODERATE= 6-15 cells (100X) (0-1/hpf); Platelet Count 33 thou/uL (130-400); Platelet Morphology Comment Appears Decreased; Polychromasia MODERATE = 3-4 cells (100X) (0-2/hpf); RBC Distribution Width 37.2 % (11.5-14.5); Red Blood Cell (RBC) Count 3.74 mill/uL (4.20-5.40); Schistocytes SLIGHT = 2-5 cells (100X) (0-1/hpf); Tear Drops SLIGHT = 2-5 cells (100X) (0-1/hpf); White Blood Cell (WBC) Count 5.4 thou/uL (4.8-10.8)
[2020-09-18] MEDS ORDERED: Ferrous Sulfate 325 MG TAB PO SCH (08:00)
[2020-09-18 12:19] VITALS: BP 126/62; TEMP 98.4
== END 2020-09-18 13:05 | disposition home or self-care (01) ==
LOC: ERS 23:38 → INTOOBSV 09-17 02:18 → ERHOLD 09-17 02:18 → T4-B 09-17 15:14
PROVIDERS: ADMIT Student in an Organized Health Care Education/Training Program; ATTEND Internal Medicine
DX: N80.0 Endometriosis of uterus (principal); N92.0 Excessive and frequent menstruation with regular cycle; D50.0 Iron deficiency anemia secondary to blood loss (chronic); D69.6 Thrombocytopenia, unspecified; D26.9 Other benign neoplasm of uterus, unspecified; E66.9 Obesity, unspecified; Z68.30 Body mass index [BMI] 30.0-30.9, adult; Z87.891 Personal history of nicotine dependence; Z79.899 Other long term (current) drug therapy; Z20.822 Contact with and (suspected) exposure to COVID-19
CPT/HCPCS: 36415; 36430; 80048; 80053; 82607; 82728; 82746; 83540; 83550; 84703; 85025; 85060; 86850; 86900; 86901; 87635; 99285; G0378; P9016; U0003; U0005

== ENCOUNTER 2022-07-02 08:34 | Observation (INO) | payer BC ==
[2022-07-02] MEDS ORDERED: diphenhydrAMINE 25 MG CAP ONE (08:55)
[2022-07-02] MEDS ORDERED: Ketorolac Tromethamine 30 MG/ML VIAL ONE (08:55)
[2022-07-02] MEDS ORDERED: Metoclopramide HCl 10 MG TAB ONE (08:55)
[2022-07-02 09:09] LABS: Reflex for Review?? YES
[2022-07-02 09:10] LABS: Hemoglobin 3.4 g/dL (12.0-16.0); Mean Corpuscular HGB CONC 29.5 g/dL (32.0-36.0); Mean Corpuscular Hemoglobin 15.5 pg (27.0-31.0); Mean Corpuscular Volume 52.7 fl (78.0-98.0); RBC Distribution Width 39.1 % (11.5-14.5); Red Blood Cell (RBC) Count 2.16 mill/uL (4.20-5.40); White Blood Cell (WBC) Count 5.6 10x3/uL (4.8-10.8)
[2022-07-02 09:12] LABS: BHCG - Serum Negative (NEGATIVE); Pregs Control Background? CLEAR/WHITE (CLR/WHITE); Pregs Control Bar Appear? YES (CONTROL BAR)
[2022-07-02 09:29] LABS: ALT (SGPT) Less than 7 U/L (8-55); AST (SGOT) 11 U/L (5-34); Alkaline Phosphatase 44 U/L (40-110); Anion Gap 9 mmol/L (10-20); BUN (Urea Nitrogen) 4 mg/dL (7.0-18.7); Bilirubin, Total 0.3 mg/dL (0.2-1.2); Calc. Creatinine Clearance 0 mL/min (70-130); Calcium 8.7 mg/dL (7.8-10.44); Carbon Dioxide 24 mmol/L (22-29); Chloride 108 mmol/L (98-107); Estimated GFR 111; Glucose 106 mg/dL (70-105); Sodium 138 mmol/L (136-145)
[2022-07-02 09:38] LABS: INR-International Normal Ratio 1.1; PTT 27.5 sec (22.9-36.1); Prothrombin Time 14.3 sec (12.0-14.7)
[2022-07-02 09:51] LABS: Anisocytosis MARKED = >30 cells (100X) (0-5/hpf); Band 1 % (5-11); Bite Cells SLIGHT = 2-5 cells (100X) (0-1/hpf); Eosinophils 2 % (0-10); Hypochromia MARKED = >30 cells (100X) (0-5/hpf); Lymphocytes 55 % (21-51); MDiff Complete? YES; Microcytosis MARKED = >30 cells (100X) (0-5/hpf); Monocytes 4 % (0-10); Neutrophil 37 % (42-75); Ovalocytes MODERATE= 6-15 cells (100X) (0-1/hpf); Platelet Count 21 10x3/uL (130-400); Platelet Morphology Comment Appears Decreased; Polychromasia MODERATE = 3-4 cells (100X) (0-2/hpf); Schistocytes MODERATE= 6-15 cells (100X) (0-1/hpf); Spherocytes SLIGHT = 1-5 cells (100X) (None Seen); Tear Drops MODERATE= 6-15 cells (100X) (0-1/hpf)
[2022-07-02 12:44] LABS: #Eosinphils 0.1 thou/uL (0.0-0.7); #Lymphocytes 2.4 thou/uL (1.20-3.40); #Monocytes 0.4 thou/uL (0.11-0.59); #Neutrophils 3.1 thou/uL (1.40-6.50); %Basophils 0.7 % (0.0-1.0); %Eosinophils 0.9 % (0.0-10.0); %Lymphocytes 39.9 % (21.0-51.0); %Monocytes 6.6 % (0.0-10.0); %Neutrophils 51.9 % (42.0-75.0); Anisocytosis MARKED = >30 cells (100X) (0-5/hpf); Burr Cells SLIGHT = 2-5 cells (100X) (0-1/hpf); Hemoglobin 3.5 g/dL (12.0-16.0); Hypochromia MODERATE=16-30 cells (100X) (0-5/hpf); MDiff Complete? YES; Mean Corpuscular HGB CONC 29.7 g/dL (32.0-36.0); Mean Corpuscular Hemoglobin 17.3 pg (27.0-31.0); Mean Corpuscular Volume 58.4 fl (78.0-98.0); Microcytosis MARKED = >30 cells (100X) (0-5/hpf); Ovalocytes SLIGHT = 2-5 cells (100X) (0-1/hpf); Platelet Count 17 10x3/uL (130-400); Platelet Morphology Comment Appears Decreased; Polychromasia MODERATE = 3-4 cells (100X) (0-2/hpf); Red Blood Cell (RBC) Count 2.04 mill/uL (4.20-5.40); Schistocytes SLIGHT = 2-5 cells (100X) (0-1/hpf); Target Cells SLIGHT = 2-5 cells (100X) (0-1/hpf)
[2022-07-02] MEDS ORDERED: Acetaminophen 325 MG TAB PO PRN (13:36)
[2022-07-02] MEDS ORDERED: Metoclopramide HCl 10 MG/2 ML VIAL IVP PRN (13:44)
[2022-07-02] MEDS ORDERED: Potassium Chloride 20 MEQ TAB PO SCH (13:45)
[2022-07-02] MEDS ORDERED: Electrolyte Replacement Protocol 1 EACH FS SCH (13:45)
[2022-07-02 14:08] LABS: Magnesium 1.8 mg/dL (1.6-2.6)
[2022-07-02 14:09] LABS: RBC Distribution Width 40.1 % (11.5-14.5)
[2022-07-02] MEDS ORDERED: Magnesium 2 GM/50 ML(in water) 2 GM in Premix Bag 1 BAG IVPB SCH (14:15)
[2022-07-02] MEDS ORDERED: Iron, Sodium Ferric Gluconate 250 MG in Sodium Chloride 0.9% 250 ML 250 ML IVPB SCH (14:45)
[2022-07-02 15:13] LABS: Iron 21 ug/dL (50-170); Iron Binding Capacity, Total 379 mcg/dL (265-497)
[2022-07-02 15:39] LABS: Ferritin 2.71 ng/mL (10-291)
[2022-07-02 18:26] VITALS: BMI 34.2
[2022-07-02] MEDS ORDERED: Iron Sucrose Complex 200 MG in Sodium Chloride 0.9% 100 ML IVPB SCH (21:00)
[2022-07-02 21:39] LABS: Hemoglobin 4.7 g/dL (12.0-16.0); Mean Corpuscular HGB CONC 32.9 g/dL (32.0-36.0); Mean Corpuscular Volume 66.9 fl (78.0-98.0); RBC Distribution Width 37.7 % (11.5-14.5); Red Blood Cell (RBC) Count 2.14 mill/uL (4.20-5.40)
[2022-07-02 21:59] LABS: #Basophils 0.2 thou/uL (0.0-0.2); #Eosinphils 0.1 thou/uL (0.0-0.7); #Lymphocytes 2.3 thou/uL (1.20-3.40); #Monocytes 0.3 thou/uL (0.11-0.59); #Neutrophils 5.1 thou/uL (1.40-6.50); %Lymphocytes 29.3 % (21.0-51.0); %Monocytes 3.8 % (0.0-10.0); %Neutrophils 63.9 % (42.0-75.0); Anisocytosis MARKED = >30 cells (100X) (0-5/hpf); Hypochromia MODERATE=16-30 cells (100X) (0-5/hpf); MDiff Complete? YES; Microcytosis MODERATE=15-30 cells (100X) (0-5/hpf); Ovalocytes SLIGHT = 2-5 cells (100X) (0-1/hpf); Platelet Count 37 10x3/uL (130-400); Platelet Morphology Comment Appears Decreased; Polychromasia SLIGHT = 2-3 cells (100X) (0-2/hpf); Schistocytes SLIGHT = 2-5 cells (100X) (0-1/hpf); Tear Drops MODERATE= 6-15 cells (100X) (0-1/hpf)
[2022-07-03] MEDS ORDERED: FLU VACC QS2022-23(6MOS UP)/PF 60 MCG/0.5 ML SYRINGE IM ONE (09:00)
[2022-07-03 09:40] LABS: Hemoglobin 8.3 g/dL (12.0-16.0); Mean Corpuscular HGB CONC 33.4 g/dL (32.0-36.0); Mean Corpuscular Hemoglobin 25.6 pg (27.0-31.0); Mean Corpuscular Volume 76.7 fl (78.0-98.0); Platelet Count 28 10x3/uL (130-400); RBC Distribution Width 35.2 % (11.5-14.5); Red Blood Cell (RBC) Count 3.26 mill/uL (4.20-5.40); White Blood Cell (WBC) Count 11.3 10x3/uL (4.8-10.8)
[2022-07-03 09:52] LABS: Anion Gap 11 mmol/L (10-20); BUN (Urea Nitrogen) Less than 4 mg/dL (7.0-18.7); Calc. Creatinine Clearance 178 mL/min (70-130); Calcium 8.6 mg/dL (7.8-10.44); Carbon Dioxide 21 mmol/L (22-29); Chloride 108 mmol/L (98-107); Estimated GFR 113; Glucose 81 mg/dL (70-105); Potassium 3.6 mmol/L (3.5-5.1); Sodium 136 mmol/L (136-145)
[2022-07-03 09:54] LABS: Anion Gap 10 mmol/L (10-20); BUN (Urea Nitrogen) Less than 4 mg/dL (7.0-18.7); Calc. Creatinine Clearance 175 mL/min (70-130); Calcium 8.6 mg/dL (7.8-10.44); Carbon Dioxide 22 mmol/L (22-29); Chloride 108 mmol/L (98-107); Estimated GFR 113; Glucose 84 mg/dL (70-105); Magnesium 2.1 mg/dL (1.6-2.6); Potassium 3.5 mmol/L (3.5-5.1); Sodium 136 mmol/L (136-145)
[2022-07-03 10:17] LABS: Anisocytosis MARKED = >30 cells (100X) (0-5/hpf); Band 7 % (5-11); Eosinophils 1 % (0-10); Helmet Cells SLIGHT = 2-5 cells (100X) (0-1/hpf); Hypochromia SLIGHT = 6-15 cells (100X) (0-5/hpf); Large Platelets SLIGHT; Lymphocytes 23 % (21-51); MDiff Complete? YES; Metamyelocyte 1 % (0-0); Microcytosis MODERATE=15-30 cells (100X) (0-5/hpf); Monocytes 3 % (0-10); Myelocyte 1 % (0-0); Neutrophil 58 % (42-75); Nucleated RBC 2 % (0); Ovalocytes SLIGHT = 2-5 cells (100X) (0-1/hpf); Platelet Morphology Comment Appears Decreased; Polychromasia MODERATE = 3-4 cells (100X) (0-2/hpf); Reactive Lymphocytes 6 % (0-10); Schistocytes MODERATE= 6-15 cells (100X) (0-1/hpf); Target Cells SLIGHT = 2-5 cells (100X) (0-1/hpf); Tear Drops SLIGHT = 2-5 cells (100X) (0-1/hpf)
[2022-07-03] MEDS ORDERED: Electrolyte Replacement Protocol FS PRN (11:15)
[2022-07-03] MEDS ORDERED: Potassium Chloride 20 MEQ TAB PO SCH (11:15)
[2022-07-03 12:11] VITALS: BP 124/71; TEMP 98.3
== END 2022-07-03 14:09 | disposition home or self-care (01) ==
LOC: ERS 08:34 → T4-B 11:41
PROVIDERS: ADMIT Internal Medicine; ATTEND Internal Medicine
DX: D50.0 Iron deficiency anemia secondary to blood loss (chronic) (principal); N92.1 Excessive and frequent menstruation with irregular cycle; D69.6 Thrombocytopenia, unspecified; E87.6 Hypokalemia; R94.31 Abnormal electrocardiogram [ECG] [EKG]; Z87.891 Personal history of nicotine dependence; Z20.822 Contact with and (suspected) exposure to COVID-19; Z79.899 Other long term (current) drug therapy
CPT/HCPCS: 36415; 36430; 80048; 80053; 82607; 82728; 83540; 83550; 83735; 84703; 85025; 85060; 85384; 85610; 85730; 86850; 86900; 86901; 93005; 94760; 96372; 96374; 96375; G0378; J1885; J2916; J3475; J7050; P9016; P9035; U0003; U0005